=== PATIENT | female | born 1960 | race African-American/Black ===

== ENCOUNTER 2018-09-03 10:02 | Day surgery (SDC) | payer BC ==
[2018-09-03] MEDS ORDERED: BUPIVACAINE 0.5% W/EPI MPF 30 ML VIAL SQ ONE (12:06)
[2018-09-03] MEDS ORDERED: LIDOCAINE 1% W/EPI 1:200,000 MPF 30ML SQ ONE (12:06)
--- NOTE | 2018-09-03 13:50 | Operative Note ---
DATE OF SURGERY: 09/03/2018 PREOPERATIVE DIAGNOSIS: Stenosing tenosynovitis, right thumb. POSTOPERATIVE DIAGNOSIS: Stenosing tenosynovitis, right thumb. OPERATION: Release trigger thumb on the right. STAFF SURGEON: Jaime Jenkins MD ANESTHESIA: Local. PREPARATION: Chloraprep. INDIVIDUAL CONSIDERATIONS: None. PROCEDURE: The patient was taken to the operating room and placed supine on the operating room table. Her right arm was prepped and draped in the usual fashion. The patient had 1% lidocaine with epinephrine infiltrated along the A1 pablo volarly. Limb was elevated and tourniquet was inflated to 250 mmHg. Sharp dissection carried directly over the skin and the pablo, and then blunt dissection carried on top of the pablo. It was retracted on either side to move the neurovascular bundles and under direct view the pablo was released. I then asked her to move her finger, and it would no longer catch. Tourniquet was let down. Hemostasis was obtained with compression after irrigation. The skin was approximated with 4-0 nylon in a vertical mattress fashion. A sterile bulky compressive dressing was applied. The patient tolerated procedure well. Needle and sponge counts were correct. Estimated blood loss was minimal. The patient was taken back to recovery in good condition. There were no complications. [facility]
== END 2018-09-03 12:40 | disposition home or self-care (01) ==
LOC: SUR 10:02
PROVIDERS: ATTEND Orthopaedic Surgery
DX: M65.311 Trigger thumb, right thumb (principal)